=== PATIENT | female | born 1930 | race Caucasian/White ===

== ENCOUNTER 2017-10-02 17:39 | Inpatient (IN) | payer OTHER ==
[2017-10-02 17:48] VITALS: BMI 33.3
[2017-10-02 19:42] LABS: BASO % 0.6 % (0-2.0); EOS % 1.9 % (0-4.5); HEMATOCRIT 42.4 % (32.4-45.2); HEMOGLOBIN 14.1 GM/dL (10.7-15.3); LYMPH % 21.2 % (8-40); MCHC 33.3 g/dl (32.0-36.0); MEAN PLT VOLUME 8.7 fl (7.5-11.1); NEUT % 70.3 % (42.8-82.8); PLATELET COUNT 185 K/MM3 (134-434); RBC 4.42 M/mm3 (3.60-5.2); RDW 15.7 % (11.6-15.6); WHITE BLOOD COUNT 7.9 K/mm3 (4.0-10.0)
--- NOTE | 2017-10-02 19:43 | PDOC ---
History of Present Illness - General Chief Complaint: Revisit,Radiology Variance Stated Complaint: PCP SENT Time Seen by Provider: 10/02/17 19:38 History Source: Patient Exam Limitations: No Limitations - History of Present Illness Initial Comments: CHIEF COMPLAINT: 87 y/o afebrile female with PMH ACS with stents, Afib on Coumadin, HTN, HLD, parkinson's here for evaluation for a blood clot in her leg. HISTORY OF PRESENT ILLNESS: The patient states she's had a bruise that's worsening and left leg pain x 3 weeks and right leg pain x 2 days. Her PMD had a stroke 5 months ago so she doesn't have a primary. She decided to go to today who informed her she has a blood clot in her leg. She admits she takes her Coumadin every day and for the past few weeks her INR has been above 5. She denies f/c, n/v/d, CP, SOB, cough, hemoptysis, abd pain, back pain, numbness /tingling in LEs. Vital signs on arrival are notable for pulse ox of 95% on RA. PMD: Dr. 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 Cr Neurologist: Dr. Cardenas REVIEW OF SYSTEMS: GENERAL/CONSTITUTIONAL: No fever/chills. No weakness. No weight change. CARDIAC: No CP, hemoptysis, cough. LUNGS: No SOB GENITOURINARY: No dysuria, frequency, or change in urination. MUSCULOSKELETAL: +b/l LE pain and bruising. No neck or back pain. SKIN: +bruising to b/l LEs. NEUROLOGIC: No headache, vertigo, loss of consciousness, or loss of sensation. PHYSICAL EXAM: VITAL_SIGNS: within normal limits GENERAL_APPEARANCE: alert, cooperative, no obvious discomfort. MENTAL_STATUS: speech clear, oriented X 3, responds appropriately to questions. NEURO: motor intact and sensory intact in injured extremity. EXTREMITIES: good pulse in injured extremity. 16cm x 9cm hematoma to left distal lower extremity that is TTP. Scattered small hematomas to right LE. b/ l calf pain without erythema, warmth or streaking. Non pitting edema to b/l LEs. 2+ dorsalis pedis pulses b/l LEs. SKIN: warm, dry, good color. Past History - Past Medical History Allergies/Adverse Reactions: Allergies Allergy/AdvReac Type Severity Reaction Status Date / Time No Known Drug Allergies Allergy Verified 10/02/17 17:41 Home Medications: Ambulatory Orders Amlodipine Besylate [Norvasc -] 2.5 mg PO DAILY 06/26/12 Aspirin Coated [Ecotrin -] 81 mg PO DAILY 06/26/12 Warfarin Sodium [Coumadin] 1 mg PO HS tablet 10/23/13 Allopurinol 300 mg PO DAILY 10/02/17 Carbidopa/Levodopa [Carbidopa-Levo ER 50-200 Tab] 1 each PO TID 10/02/17 Nebivolol [Bystolic -] 10 mg PO HS 10/02/17 Ranolazine [Ranexa -] 500 mg PO BID 10/02/17 Rosuvastatin [Crestor -] 10 mg PO DAILY 10/02/17 Cardiac Disorders: Yes (pacemaker [employer] stents,a.f.) CVA: No COPD: No Dementia: No HTN: Yes Hypercholesterolemia: Yes Seizures: No Thyroid Disease: No - Surgical History Cardiac Surgery: Yes (stents 5yrs ago) - Suicide/Smoking/Psychosocial Hx Smoking History: Former smoker Have you smoked in the past 12 months: No If you are a former smoker, when did you quit?: yrs ago Information on smoking cessation initiated: No Hx Alcohol Use: (rare) Substance Use Type: Alcohol *Physical Exam - Vital Signs Last Vital Signs Temp Pulse Resp BP Pulse Ox 98 F 78 16 145/66 95 10/02/17 17:42 10/02/17 17:42 10/02/17 17:42 10/02/17 17:42 10/02/17 17:42 Heart Score/ECG Review - History History: Slightly suspicious - Electrocardiogram EKG: Non specific repolarization disturbance - Age Age: >/= 65 - Risk Factors Risk Factors Heart Score: Yes Hx Hypercholesterolemia, Yes Hx Hypertension, Yes Hx Obesity Based on the list above the patient has:: >/=3 risk factors or Hx atherosclerotic disease - ECG Intrepretation Comment:: Twelve-lead EKG was performed and reviewed by Dr. Pierre. There is atrial paced rhythm with prolonged AV conduction. The axis is normal. The intervals are normal. Non specific ST and T wave abnormality Impression: Abnormal twelve-lead EKG ED Treatment Course - LABORATORY CBC & Chemistry Diagram: 10/02/17 18:52 10/02/17 21:00 Medical Decision Making - Medical Decision Making A/P: 87 y/o afebrile female here for an evaluation of possible blood clot in her legs. Physical exam is not consistent with DVT and suspicious given her INR levels have been >5. Plan is as follows: 1. Labs 2. EKG 3. Doppler LEs 4. CXR INR = 3.3 Venous doppler b/l LEs IMPRESSION: Thrombus in proximal, mid and distal right femoral vein. Spoke with Dr. Marquez and he does not want her to have any extra anticoagulation. He wants to consult with the patient and her family tomorrow for possible IVC filter placement. Spoke with Dr. Chiu and will be admitted. Dr. Hale consulted Hematology consulted Informed the patient and her family of the results and plan. I attempted to answer all questions they had. *DC/Admit/Observation/Transfer Diagnosis at time of Disposition: DVT (deep venous thrombosis) - Discharge Dispostion Condition at time of disposition: Stable Admit: Yes - Referrals - Patient Instructions - Post Discharge Activity
[2017-10-02 20:03] LABS: INR 3.31 (0.82-1.09); PROTHROMBIN TIME (PATIENT) 37.4 SEC (9.7-13.0)
--- NOTE | 2017-10-02 20:05 | PDOC ---
*Physical Exam - Vital Signs Last Vital Signs Temp Pulse Resp BP Pulse Ox 98 F 78 16 145/66 95 10/02/17 17:42 10/02/17 17:42 10/02/17 17:42 10/02/17 17:42 10/02/17 17:42 ED Treatment Course - LABORATORY CBC & Chemistry Diagram: 10/03/17 07:12 10/03/17 07:12 - ADDITIONAL ORDERS Additional order review: 10/02/17 18:52 RBC 4.42 MCV 96.0 MCHC 33.3 RDW 15.7 H MPV 8.7 Neutrophils % 70.3 Lymphocytes % 21.2 D Monocytes % 6.0 Eosinophils % 1.9 Basophils % 0.6 Medical Decision Making - Medical Decision Making 10/02/17 20:05 agree with care from MANUEL Mendez *DC/Admit/Observation/Transfer Diagnosis at time of Disposition: DVT (deep venous thrombosis) - Discharge Dispostion Condition at time of disposition: Stable - Referrals - Patient Instructions - Post Discharge Activity
[2017-10-02 21:25] LABS: URINE APPEARANCE SLCLOUDY; URINE BILIRUBIN NEGATIVE (<2.0 mg/dL); URINE COLOR YELLOW; URINE GLUCOSE (UA) NEGATIVE (NEGATIVE); URINE KETONE TRACE (NEGATIVE); URINE NITRITE POSITIVE (NEGATIVE); URINE UROBILINOGEN NEGATIVE mg/dL (0.2-1.0)
[2017-10-02 21:37] LABS: URINE LEUK ESTERASE 1+ (NEGATIVE); URINE PROTEIN 1+ (NEGATIVE)
[2017-10-02 21:40] LABS: ALBUMIN 3.7 g/dl (3.4-5.0); ALK PHOS 95 U/L (45-117); ANION GAP 5 (8-16); BILIRUBIN,TOTAL 0.5 mg/dL (0.2-1.0); BLOOD UREA NITROGEN 29 mg/dL (7-18); CALCIUM 8.9 mg/dL (8.5-10.1); CHLORIDE 111 mmol/L (98-107); CO2 27 mmol/L (21-32); CREATININE 1.2 mg/dL (0.55-1.02); GLUCOSE,RANDOM 100 mg/dL (74-106); SGOT/AST 23 U/L (15-37); SGPT/ALT 10 U/L (12-78); SODIUM 143 mmol/L (136-145); TOT PROT 6.6 g/dl (6.4-8.2)
[2017-10-02 21:53] LABS: URINE BACTERIA RARE /hpf (NONE SEEN); URINE MUCUS RARE
--- NOTE | 2017-10-02 22:20 | PN ---
Teaching Attending Note Name of Resident: Hermes Null ATTENDING PHYSICIAN STATEMENT I saw and evaluated the patient. I reviewed the resident's note and discussed the case with the resident. I agree with the resident's findings and plan as documented. SUBJECTIVE: 87 to F with pmhx. of CAD with stents, A-Fib on Coumadin, Parkinson's who presents with left leg pain and right leg pain. She presented to urgent care who had done a US and told her she had a blood clot in the leg. States she is compliant with Coumadin. Notes her INR hs been > 5 over the course of several week. No chest pain, pressure, or shortness of breath. No hemoptysis, No numbness/tingling of LE. Of note, pt.s son and granddaughter has Protein C defeciency PMD: Dr. Boss-Retired OBJECTIVE: Physical: VS: Vital Signs Period Temp Pulse Resp BP Sys/Rodarte Pulse Ox Last 24 Hr 98 F 63-78 16-16 125-145/63-66 95-96 GEN: NAD, Resting in bed, AAoX HEENT: NCAT, PERRL, Throat without erythema or exudtaes CARD: RRR S1. S2 RESP: CTAB ABD: Bsx4, NTD to palpation EXT: RLE Edema>Left, 5X8 cm hematoma on L. mcarthur, Pulses intact bilateral LE. UE -C/C/E CBCD WBC 7.9 K/mm3 (4.0-10.0) 10/02/17 18:52 RBC 4.42 M/mm3 (3.60-5.2) 10/02/17 18:52 Hgb 14.1 GM/dL (10.7-15.3) D 10/02/17 18:52 Hct 42.4 % (32.4-45.2) 10/02/17 18:52 MCV 96.0 fl (80-96) 10/02/17 18:52 MCHC 33.3 g/dl (32.0-36.0) 10/02/17 18:52 RDW 15.7 % (11.6-15.6) H 10/02/17 18:52 Plt Count 185 K/MM3 (134-434) 10/02/17 18:52 MPV 8.7 fl (7.5-11.1) 10/02/17 18:52 CMP Sodium 143 mmol/L (136-145) 10/02/17 21:00 Potassium 4.0 mmol/L (3.5-5.1) 10/02/17 21:00 Chloride 111 mmol/L (98-107) H 10/02/17 21:00 Carbon Dioxide 27 mmol/L (21-32) 10/02/17 21:00 Anion Gap 5 (8-16) L 10/02/17 21:00 BUN 29 mg/dL (7-18) H 10/02/17 21:00 Creatinine 1.2 mg/dL (0.55-1.02) H 10/02/17 21:00 Creat Clearance w eGFR 42.50 (>60) 10/02/17 21:00 Random Glucose 100 mg/dL (74-106) 10/02/17 21:00 Calcium 8.9 mg/dL (8.5-10.1) 10/02/17 21:00 Total Bilirubin 0.5 mg/dL (0.2-1.0) 10/02/17 21:00 AST 23 U/L (15-37) 10/02/17 21:00 ALT 10 U/L (12-78) L 10/02/17 21:00 Alkaline Phosphatase 95 U/L (45-117) 10/02/17 21:00 Total Protein 6.6 g/dl (6.4-8.2) 10/02/17 21:00 Albumin 3.7 g/dl (3.4-5.0) 10/02/17 21:00 INR, PTT INR 3.31 (0.82-1.09) H D 10/02/17 18:52 Home Medications Medication Instructions Recorded Amlodipine Besylate [Norvasc -] 2.5 mg PO DAILY 06/26/12 Aspirin Coated [Ecotrin -] 81 mg PO DAILY 06/26/12 Warfarin Sodium [Coumadin] 1 mg PO HS tablet 10/23/13 Allopurinol 300 mg PO DAILY 10/02/17 Carbidopa/Levodopa [Carbidopa-Levo 1 each PO TID 10/02/17 ER 50-200 Tab] Nebivolol [Bystolic -] 10 mg PO HS 10/02/17 Ranolazine [Ranexa -] 500 mg PO BID 10/02/17 Rosuvastatin [Crestor -] 10 mg PO DAILY 10/02/17 EKG: Atrial Paced with prolonged AV conduction. Non-Specific ST-T abnormality CXR: PPM, No Acute Process ASSESSMENT AND PLAN: 87 to F with pmhx. of CAD with stents, A-Fib on Coumadin, Parkinson's who presents with left leg pain and right leg pain, found to have a DVT of the right leg 1.) DVT R. Leg - Theraputic on Coumadin - NPO - Coags - Vasc. Consult for IVC filter - Type & Screen 2.) Hx. of CAD w. Stents - Hold ASA - C/W Bysolic - Statin 3.) HLD - C/W Statin 4.) Parkinson's Dx - C/W Carbidopa-Levidopa Place in Med-Sx
--- NOTE | 2017-10-02 23:13 | HP ---
CHIEF COMPLAINT: PCP: Dr. Boss-Retired Cardio: Dr Cobos Neuro: Dr Cardenas HISTORY OF PRESENT ILLNESS: 87yo F with PMHx of CAD (s/p stents) and Afib on Coumadin who was sent to the ER from urgent care for RLE DVT. She has been on Coumadin since 2012, compliant , gets INR checks every week, has been supratherapeutic (>5) for the past five weeks. Minimal changes have been made to her coumadin dosing. Has not seen PMD for 5 months since PMD retired. Went to ER for an expanding hematoma on her L mcarthur, but on venous duplex was found to have DVT in RLE. Has been recently more immobile 2/2 worsening sciatica. Denies malignancy. Son and grandaughter have confirmed Protein C deficiency. She is unsure if she carries the gene, never been worked up. No prior hx of clots. No CP, no SOB. In the ER, the patient was hemodynamically stable, repeat duplex shows R femoral DVT. Dr Marquez was paged, wanted no additional AC, plan for filter. Recent Travel: Denies PAST MEDICAL HISTORY: CAD with stents, Afib on Coumadin, HTN, HLD, Parkinson's here for evaluation for a blood clot in her leg. PAST SURGICAL HISTORY: Stents in 2014, Pacemaker Social History: Smokin+ pack year smoking hx Alcohol: Denies Drugs: Denies Allergies: No Known Drug Allergies Allergy (Verified 10/02/17 17:41) HOME MEDICATIONS: Home Medications Medication Instructions Recorded Amlodipine Besylate [Norvasc -] 2.5 mg PO DAILY 06/26/12 Aspirin Coated [Ecotrin -] 81 mg PO DAILY 06/26/12 Warfarin Sodium [Coumadin] 1 mg PO HS tablet 10/23/13 Allopurinol 300 mg PO DAILY 10/02/17 Carbidopa/Levodopa [Carbidopa-Levo 1 each PO TID 10/02/17 ER 50-200 Tab] Nebivolol [Bystolic -] 10 mg PO HS 10/02/17 Ranolazine [Ranexa -] 500 mg PO BID 10/02/17 Rosuvastatin [Crestor -] 10 mg PO DAILY 10/02/17 REVIEW OF SYSTEMS CONSTITUTIONAL: Absent: fever, chills, diaphoresis, generalized weakness, malaise, loss of appetite, weight change HEENT: Absent: rhinorrhea, nasal congestion, throat pain, throat swelling, difficulty swallowing, mouth swelling, ear pain, eye pain, visual changes CARDIOVASCULAR: Absent: chest pain, syncope, palpitations, irregular heart rate , lightheadedness, peripheral edema RESPIRATORY: Absent: cough, shortness of breath, dyspnea with exertion, orthopnea, wheezing, stridor, hemoptysis GASTROINTESTINAL:Absent: abdominal pain, abdominal distension, nausea, vomiting , diarrhea, constipation, melena, hematochezia GENITOURINARY: Absent: dysuria, frequency, urgency, hesitancy, hematuria, flank pain, genital pain MUSCULOSKELETAL: Absent: myalgia, arthralgia, joint swelling, back pain, neck pain SKIN: Absent: rash, itching, pallor HEMATOLOGIC/IMMUNOLOGIC: Absent: easy bleeding, easy bruising, lymphadenopathy, frequent infections ENDOCRINE:Absent: unexplained weight gain, unexplained weight loss, heat intolerance, cold intolerance NEUROLOGIC: Absent: headache, focal weakness or paresthesias, dizziness, unsteady gait, seizure, mental status changes, bladder or bowel incontinence PSYCHIATRIC: Absent: anxiety, depression, suicidal or homicidal ideation, hallucinations. PHYSICAL EXAMINATION Vital Signs Period Temp Pulse Resp BP Sys/Rodarte Pulse Ox Last 24 Hr 98 F 63-78 16-16 125-145/63-66 95-96 GEN: AAOx3, NAD, Has resting oral movements from PD, smiling HEENT: PERRLA, EOmi, no JVD CV: S1, S2, RRR LUNG: CTABL ABD: Soft, NT, ND, normoactive BS MSK: No flank tenderness, 3x4cm Hematoma on L mcarthur w/ overlying discoloration, tender to palpation, non-pitting edema, scattered hematomas, DP and PT pulses 2 + bilaterally, 5/5 feet strength. NEURO: CN 2-12 intact, decreased sensation in RLE, normal in LLE. ASSESSMENT/PLAN: 87yo F with PMHx of CAD (s/p stents) and Afib on Coumadin who was sent to the ER from urgent care for R Femoral DVT. # DVT on Coumadin -- Has been supratherapeutic for 1 mo. ?Is the clot acute? F/u with PMD. Assuming clot is acute, Dr Marquez was consulted, plan for IVC filter, he requests no additional AC nael. Will get heme consult for family hx of protein C deficiency. # RLE Paresthesia -- Decreased sensation in RLE. Could be from hematoma compressing cutaneous nerves. No concern for compartmet syndrome. No hx of DM but will get A1C # Elevated Cr -- Unsure of baseline, decreased form prior, workup not needed, BMp in AM. # LLE hematoma --Likely from supratherapeutic INR, Warm compresses. # Asymptomatic Pyuria -- Hold off on abx since pt is asymptomatic. F/u Ucx # CAD s/p stents -- No active CP, EKG unchanged from before, paced rhythm. Hold ASA for procedure. Continue statin. Pt requests link trainer operator consult, plan to make him PMD. # HTN -- Well controlled. Continue Nebivolol and norvasc # Parkinsons -- Continue sinemet # FEN/PPx -- No IVF, NPO, Supratherapeutic INR # Dispo -- Admit to tele Case d/w Dr Lizama & Dr Aram Null MD - PGY1 Night Post Acute Care Nurse Practitioner Visit type - Emergency Visit Emergency Visit: Yes ED Registration Date: 10/02/17 Care time: The patient presented to the Emergency Department on the above date and was hospitalized for further evaluation of their emergent condition. - New Patient This patient is new to me today: Yes Date on this admission: 10/03/17 - Critical Care Critical Care patient: No Hospitalist Screening - Colonoscopy Questionnaire Colonoscopy Questionnaire: Colonoscopy Questionnaire - Patient: 50 - 75 years old and never had a screening colonoscopy: Unknown History of colon or rectal polyps, or CA: Unknown History of IBD, Crohn's disease or UC: Unknown History of abdominal radiation therapy as a child: Unknown - Relative: 1 with colon or rectal CA, or polyps at age 60 or younger: Unknown Colon or rectal CA diagnosed at age 45 or younger: Unknown Multiple relatives with colon or rectal CA: Unknown - Outcome: Screening Result: Negative Screen
[2017-10-03] MEDS: NEBIVOLOL 10 MG TABLET (FP) PO SCH ×2 (00:42→21:17)
[2017-10-03] MEDS: RANOLAZINE E.R. 500 MG TABLET (FP) PO SCH ×3 (00:42→21:17)
[2017-10-03] MEDS: ROSUVASTATIN CA 10 MG TABLET (FP) PO SCH ×2 (00:42→21:17)
[2017-10-03 07:46] LABS: HEMATOCRIT 36.8 % (32.4-45.2); HEMOGLOBIN 12.4 GM/dL (10.7-15.3); MCH 32.3 pg (25.7-33.7); MCHC 33.8 g/dl (32.0-36.0); MEAN CELL VOLUME 95.6 fl (80-96); PLATELET COUNT 173 K/MM3 (134-434); RBC 3.85 M/mm3 (3.60-5.2); RDW 15.7 % (11.6-15.6); WHITE BLOOD COUNT 6.4 K/mm3 (4.0-10.0)
[2017-10-03 08:30] LABS: CHLORIDE 110 mmol/L (98-107); POTASSIUM 4.2 mmol/L (3.5-5.1); SODIUM 146 mmol/L (136-145)
[2017-10-03] MEDS ORDERED: PT OWN MED DRAWER 7, Y5N ONE ×2 (08:36→14:00)
[2017-10-03 08:38] LABS: ANION GAP 10 (8-16); BLOOD UREA NITROGEN 26 mg/dL (7-18); CALCIUM 9.1 mg/dL (8.5-10.1); CO2 26 mmol/L (21-32); CREATININE 1.1 mg/dL (0.55-1.02); GLUCOSE,RANDOM 76 mg/dL (74-106); MAGNESIUM 2.1 mg/dL (1.8-2.4); PHOSPHOROUS 3.5 mg/dL (2.5-4.9)
[2017-10-03] MEDS: ALLOPURINOL 300 MG TABLET (FP) PO SCH (09:11)
[2017-10-03] MEDS: amLODIPine BESYLATE 2.5 MG TABLET (FP) PO SCH (09:11)
[2017-10-03 09:36] LABS: INR 3.06 (0.82-1.09); PROTHROMBIN TIME (PATIENT) 34.6 SEC (9.7-13.0)
--- NOTE | 2017-10-03 10:13 | CON.CARD ---
Consult Consult Specialty:: Cardiology Referred by:: Hospitalist Medicine Reason for Consultation:: RLE DVT with therapeutic INR - History of Present Illness Chief Complaint: RLE swelling History of Present Illness: 87 to F with pmhx. of CAD with stents, A-Fib on Coumadin, Parkinson's who presents with bilateral leg pain. She presented to urgent care who had done a US and told her she had a blood clot in the right femoral vein. States she is compliant with Coumadin. Outpatient notes show her INR 1.52 09/04/2017, 2.57 03/2018, 2.79 09/18/2017 3.35 09/25/2017 No chest pain, pressure, or shortness of breath, near or true syncope, palpitations, orthopnea, PND. No hemoptysis, No numbness/tingling of LE. Of note, pt.s son and granddaughter has Protein C deficiency, superficial bruising seen on LLE. PMD: Dr. Ayon-Retired - History Source History Provided By: Patient Limitations to Obtaining History: No Limitations - Alcohol/Substance Use Hx Alcohol Use: (rare) - Smoking History Smoking history: Former smoker Have you smoked in the past 12 months: No If you are a former smoker, when did you quit?: yrs ago Home Medications - Allergies Allergies/Adverse Reactions: Allergies Allergy/AdvReac Type Severity Reaction Status Date / Time No Known Drug Allergies Allergy Verified 10/02/17 17:41 - Home Medications Home Medications: Ambulatory Orders Amlodipine Besylate [Norvasc -] 2.5 mg PO DAILY 06/26/12 Aspirin Coated [Ecotrin -] 81 mg PO DAILY 06/26/12 Warfarin Sodium [Coumadin] 1 mg PO HS tablet 10/23/13 Allopurinol 300 mg PO DAILY 10/02/17 Carbidopa/Levodopa [Carbidopa-Levo ER 50-200 Tab] 1 each PO TID 10/02/17 Nebivolol [Bystolic -] 10 mg PO HS 10/02/17 Ranolazine [Ranexa -] 500 mg PO BID 10/02/17 Rosuvastatin [Crestor -] 10 mg PO DAILY 10/02/17 Review of Systems - Review of Systems Cardiovascular: reports: Edema Vital Signs: Vital Signs Temperature 98.3 F 10/03/17 07:42 Pulse Rate 63 10/03/17 07:42 Respiratory Rate 19 05/02/18 07:43 Blood Pressure 117/54 10/03/17 07:42 O2 Sat by Pulse Oximetry (%) 96 10/03/17 07:43 Constitutional: Yes: No Distress, Calm Neck: Yes: Supple Respiratory: Yes: Regular, Diminished Gastrointestinal: Yes: Normal Bowel Sounds, Soft, Abdomen, Obese Cardiovascular: Yes: Pulse Irregular JVD: No Carotid Bruit: No Heart Sounds: Yes: S1, S2 Murmur: Yes: Systolic Murmur, Grade 1 Edema: Yes Edema: LLE: 1+, RLE: 1+ - Other Data Labs, Other Data: CBC, BMP 10/03/17 07:12 10/03/17 07:12 INR, PTT INR 3.06 (0.82-1.09) H 10/03/17 06:00 EKG: Atrial Paced with prolonged AV conduction. Non-Specific ST-T abnormality Ejection Fraction %: LVEF > or = 40 % Imaging - Results Chest X-ray: Report Reviewed (NAD) Ultrasound: Report Reviewed (RLE DVT) Problem List - Problems (1) Paroxysmal atrial fibrillation Code(s): I48.0 - PAROXYSMAL ATRIAL FIBRILLATION (2) Anticoagulant long-term use Code(s): Z79.01 - JAIL (CURRENT) USE OF ANTICOAGULANTS (3) Right femoral vein DVT Code(s): I82.411 - ACUTE EMBOLISM AND THROMBOSIS OF RIGHT FEMORAL VEIN Qualifiers: Chronicity: acute Qualified Code(s): I82.411 - Acute embolism and thrombosis of right femoral vein (4) Sick sinus syndrome Code(s): I49.5 - SICK SINUS SYNDROME (5) Pacemaker Code(s): Z95.0 - PRESENCE OF CARDIAC PACEMAKER (6) Diastolic dysfunction Code(s): I51.9 - HEART DISEASE, UNSPECIFIED (7) Chronic kidney disease Code(s): N18.9 - CHRONIC KIDNEY DISEASE, UNSPECIFIED (8) Coronary artery disease Code(s): I25.10 - ATHSCL HEART DISEASE OF [place] CORONARY ARTERY W/O ANG PCTRS Qualifiers: Coronary Disease-Associated Artery/Lesion type: [place] artery [place] vs. transplanted heart: [place] heart Associated angina: without angina Qualified Code(s): I25.10 - Atherosclerotic heart disease of [place] coronary artery without angina pectoris (9) S/P coronary artery stent placement Code(s): Z95.5 - PRESENCE OF CORONARY ANGIOPLASTY IMPLANT AND GRAFT (10) Hypertensive cardiomyopathy Code(s): I11.9 - HYPERTENSIVE HEART DISEASE WITHOUT HEART FAILURE; I43 - CARDIOMYOPATHY IN DISEASES CLASSIFIED ELSEWHERE Qualifiers: Heart failure presence: without heart failure Qualified Code(s): I11.9 - Hypertensive heart disease without heart failure; I43 - Cardiomyopathy in diseases classified elsewhere; I43 - Cardiomyopathy in diseases classified elsewhere; I43 - Cardiomyopathy in diseases classified elsewhere; I43 - Cardiomyopathy in diseases classified elsewhere (11) Hyperlipidemia Code(s): E78.5 - HYPERLIPIDEMIA, UNSPECIFIED Qualifiers: Hyperlipidemia type: pure hypercholesterolemia Qualified Code(s): E78.00 - Pure hypercholesterolemia, unspecified; E78.0 - Pure hypercholesterolemia Assessment/Plan 07/04/2017 Echo: cLVH, normal LVEF 55-60%, abnl LV compliance, mild TR RVSP 37 mmHg 1. Rt LE DVT despite therapeutic INR 2. Family h/o protein C deficiency 3. CAD s/p PCI (stent), angina pectoris 4. Paroxysmal afib on coumadin per INR 5. SSS s/p PPM ([employer]) 6. 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 HTN/HCVD 9. Hyperlipidemia 10. CKD 11. Parkinson's disease P:1. Coumadin per INR, 2-3 2. Vascular surgery consideration for IVC filter 3. Consider switch to NOAC 4. Agree with d/c ASA 5. Continue Bystolic 10 qd, Ranexa 500 bid, Norvasc 2.5 qd 6. Thank you for consultative opportunity
--- NOTE | 2017-10-03 10:31 | EKG ---
Test Reason : Blood Pressure : / mmHG Vent. Rate : 060 BPM Atrial Rate : 060 BPM P-R Int : 000 ms QRS Dur : 080 ms QT Int : 448 ms P-R-T Axes : 000 035 045 degrees QTc Int : 448 ms POOR DATA QUALITY, INTERPRETATION MAY BE ADVERSELY AFFECTED Atrial-paced rhythm with prolonged AV conduction NONSPECIFIC ST AND T WAVE ABNORMALITY ABNORMAL ECG WHEN COMPARED WITH ECG OF 26-JUN-2012 11:37, ELECTRONIC ATRIAL PACEMAKER HAS REPLACED ELECTRONIC VENTRICULAR PACEMAKER Confirmed by ANGEL RICO, JORDAN ([id number]) on 10/03/2017 10:31:24 AM Referred By: Confirmed By:JORDAN ORTIZ MD
--- NOTE | 2017-10-03 14:14 | PN ---
Teaching Attending Note Name of Resident: Kashif Gould ATTENDING PHYSICIAN STATEMENT I saw and evaluated the patient. I reviewed the resident's note and discussed the case with the resident. I agree with the resident's findings and plan as documented. SUBJECTIVE: Has pain in LLE with ambulation only. no pain at rest. no CP or SOB. no plapitations . reports sedentary life style lately. reports one level of INR 1.5 on 09/08 tingling in L foot toes . OBJECTIVE: NAd ,AAOx3, cooperative. Cv: RRR, no JVD Lungs: CTAB Abd: soft, NT, ND , NL BS Ext: RLE with edema , increased tenderness over the calf. DP 2+ . LLE with bruise on mcarthur with dependent extension to foot. DP 1+ . Nl sensation in feet . ASSESSMENT AND PLAN: 87 y/o lady with h/o HTN, CAD s/p stenting, A fib on coumadin and family h/o Protein C def who presented with L leg hematoma and RLE DVT from urgent care 1- R femoral vein DVT: unclear how old. although on coumadin, INR was subtherapeutic earlier this month . unclear if coumadin resistance/failure vs hypercoagulable state . - for IVC filter when INR < 2 - hold coumadin for now - protein C and S levels could be low on coumadin and acute clot but if NL it r /o prtoein c/s deficiency . will d/w heme - other hypercoagulable w/u ( anticardiolipin, Lupus anticoagulant, prothrombin gene mutation , anthithrombin Abs,,etc ) need authorization - to d/w Heme whether coumadin can be cont or switch to NOACs 2- LLE hematoma. in the setting of coumadin use. no signs of compartment syndrome - monitor - hold coumadin - hold asa 3- A fib: - coumad in on hold - cont bystolic 4- CAD: cont ranexa, norvasc , statin 5- ROWENA: likely prerenal. improved . will encourage oral hydration especially in setting of dehhydration and hypernatremia. if Na or cr cont to increase , will add IVF 6-Pyuria : asymptomatic . dispo : HLOC
--- NOTE | 2017-10-03 15:55 | CONSULT ---
Consult Consult Specialty:: Hematology - History of Present Illness History of Present Illness: 87 y/o female with h/o HTN, CAD s/p stents, A fib on coumadin and family h/o Protein C def who presented with L leg hematoma and RLE DVT. INR is >3 Hematology consulted for DVT on coumadin Pt seen and examined. Does not recall how she "bumped" her leg. - History Source History Provided By: Patient - Alcohol/Substance Use Hx Alcohol Use: (rare) - Smoking History Smoking history: Former smoker Have you smoked in the past 12 months: No If you are a former smoker, when did you quit?: yrs ago Home Medications - Allergies Allergies/Adverse Reactions: Allergies Allergy/AdvReac Type Severity Reaction Status Date / Time No Known Drug Allergies Allergy Verified 10/02/17 17:41 - Home Medications Home Medications: Ambulatory Orders Amlodipine Besylate [Norvasc -] 2.5 mg PO DAILY 06/26/12 Aspirin Coated [Ecotrin -] 81 mg PO DAILY 06/26/12 Warfarin Sodium [Coumadin] 1 mg PO HS tablet 10/23/13 Allopurinol 300 mg PO DAILY 10/02/17 Carbidopa/Levodopa [Carbidopa-Levo ER 50-200 Tab] 1 each PO TID 10/02/17 Nebivolol [Bystolic -] 10 mg PO HS 10/02/17 Ranolazine [Ranexa -] 500 mg PO BID 10/02/17 Rosuvastatin [Crestor -] 10 mg PO DAILY 10/02/17 Physical Exam Vital Signs: Vital Signs Temperature 97.2 F L 10/03/17 14:00 Pulse Rate 88 10/03/17 14:00 Respiratory Rate 19 10/03/17 07:43 Blood Pressure 124/66 10/03/17 14:00 O2 Sat by Pulse Oximetry (%) 96 10/03/17 07:43 Constitutional: Yes: Well Nourished, No Distress, Calm Eyes: Yes: Conjunctiva Clear HENT: Yes: Atraumatic, Normocephalic Neck: Yes: Supple, Trachea Midline Cardiovascular: Yes: Regular Rate and Rhythm Respiratory: Yes: Regular, CTA Bilaterally Gastrointestinal: Yes: Normal Bowel Sounds, Soft Extremities: Yes: Other (LLE: with +hematoma, slighlty tender.) Labs: CBC, BMP 10/03/17 07:12 10/03/17 07:12 Assessment/Plan New DVT while patient on coumadin can change to NOACs, once INR <2 Etiology ? being considered for IVC filter Hematoma monitoring ( of the LLE ) Its hard to assess Pr C def in her with a supposedly new clot and in a 87 year old d/w primary hospitalist
--- NOTE | 2017-10-03 17:02 | PN ---
Physical Exam: SUBJECTIVE: Patient seen and examined at bedside. No new complaints. The patient still endorses parasthesia in her left foot. OBJECTIVE: Vital Signs Period Temp Pulse Resp BP Sys/Rodarte Pulse Ox Last 24 Hr 97.2 F-98.3 F 61-88 16-19 113-145/48-76 95-96 GENERAL: The patient is awake, alert, and fully oriented, in no acute distress. HEAD: Normal with no signs of trauma. NECK: Trachea midline, full range of motion, supple. LUNGS: Breath sounds equal, clear to auscultation bilaterally, no wheezes, no crackles, no accessory muscle use. HEART: Regular rate and rhythm, S1, S2 without murmur, rub or gallop. ABDOMEN: Soft, nontender, nondistended, normoactive bowel sounds, no guarding, no rebound, no hepatosplenomegaly, no masses. EXTREMITIES: 2+ pulses, warm, well-perfused, no edema. There is an area on the distal 1/3 of the lower limb that is raised and bruised. The bruising extends from the lower limb into the foot. There is mild tenderness to palpation in the right lower limb. NEUROLOGICAL: Cranial nerves II through X grossly intact. Normal speech, gait not observed. PSYCH: Normal mood, normal affect. SKIN: Warm, dry, normal turgor, no rashes or lesions noted Laboratory Results - last 24 hr 10/02/17 10/02/17 10/02/17 18:52 18:52 18:52 WBC 7.9 RBC 4.42 Hgb 14.1 D Hct 42.4 MCV 96.0 MCH 32.0 MCHC 33.3 RDW 15.7 H Plt Count 185 MPV 8.7 Neutrophils % 70.3 Lymphocytes % 21.2 D Monocytes % 6.0 Eosinophils % 1.9 Basophils % 0.6 PT with INR 37.40 H INR 3.31 H D Sodium Cancelled Potassium Cancelled Chloride Cancelled Carbon Dioxide Cancelled Anion Gap Cancelled BUN Cancelled Creatinine Cancelled Creat Clearance w eGFR Cancelled Random Glucose Cancelled Hemoglobin A1c % Calcium Cancelled Phosphorus Magnesium Total Bilirubin Cancelled AST Cancelled ALT Cancelled Alkaline Phosphatase Cancelled Total Protein Cancelled Albumin Cancelled Urine Color Urine Appearance Urine pH Ur Specific [place] Urine Protein Urine Glucose (UA) Urine Ketones Urine Blood Urine Nitrite Urine Bilirubin Urine Urobilinogen Ur Leukocyte Esterase Urine WBC (Auto) Urine RBC (Auto) Urine Bacteria Urine Mucus Blood Type Antibody Screen 10/02/17 10/02/17 10/03/17 21:00 21:10 06:00 WBC RBC Hgb Hct MCV MCH MCHC RDW Plt Count MPV Neutrophils % Lymphocytes % Monocytes % Eosinophils % Basophils % PT with INR 34.60 H INR 3.06 H Sodium 143 Potassium 4.0 Chloride 111 H Carbon Dioxide 27 Anion Gap 5 L BUN 29 H Creatinine 1.2 H Creat Clearance w eGFR 42.50 Random Glucose 100 Hemoglobin A1c % Calcium 8.9 Phosphorus Magnesium Total Bilirubin 0.5 AST 23 ALT 10 L Alkaline Phosphatase 95 Total Protein 6.6 Albumin 3.7 Urine Color Yellow Urine Appearance Slcloudy Urine pH 5.0 Ur Specific [place] 1.020 Urine Protein 1+ H Urine Glucose (UA) Negative Urine Ketones Trace H Urine Blood 1+ H Urine Nitrite Positive Urine Bilirubin Negative Urine Urobilinogen Negative Ur Leukocyte Esterase 1+ H Urine WBC (Auto) 66 Urine RBC (Auto) 2 Urine Bacteria Rare Urine Mucus Rare Blood Type Antibody Screen 10/03/17 10/03/17 10/03/17 06:00 06:00 07:12 WBC 6.4 RBC 3.85 Hgb 12.4 D Hct 36.8 MCV 95.6 MCH 32.3 MCHC 33.8 RDW 15.7 H Plt Count 173 MPV 8.0 Neutrophils % Lymphocytes % Monocytes % Eosinophils % Basophils % PT with INR INR Sodium Potassium Chloride Carbon Dioxide Anion Gap BUN Creatinine Creat Clearance w eGFR Random Glucose Hemoglobin A1c % 6.1 H Calcium Phosphorus Magnesium Total Bilirubin AST ALT Alkaline Phosphatase Total Protein Albumin Urine Color Urine Appearance Urine pH Ur Specific [place] Urine Protein Urine Glucose (UA) Urine Ketones Urine Blood Urine Nitrite Urine Bilirubin Urine Urobilinogen Ur Leukocyte Esterase Urine WBC (Auto) Urine RBC (Auto) Urine Bacteria Urine Mucus Blood Type A POSITIVE Antibody Screen Negative 10/03/17 07:12 WBC RBC Hgb Hct MCV MCH MCHC RDW Plt Count MPV Neutrophils % Lymphocytes % Monocytes % Eosinophils % Basophils % PT with INR INR Sodium 146 H Potassium 4.2 Chloride 110 H Carbon Dioxide 26 Anion Gap 10 BUN 26 H Creatinine 1.1 H Creat Clearance w eGFR Random Glucose 76 Hemoglobin A1c % Calcium 9.1 Phosphorus 3.5 Magnesium 2.1 Total Bilirubin AST ALT Alkaline Phosphatase Total Protein Albumin Urine Color Urine Appearance Urine pH Ur Specific [place] Urine Protein Urine Glucose (UA) Urine Ketones Urine Blood Urine Nitrite Urine Bilirubin Urine Urobilinogen Ur Leukocyte Esterase Urine WBC (Auto) Urine RBC (Auto) Urine Bacteria Urine Mucus Blood Type Antibody Screen Active Medications Generic Name Dose Route Start Last Admin Trade Name Dylan PRN Reason Stop Dose Admin Allopurinol 300 mg 10/03/17 10:00 10/03/17 09:11 Zyloprim - PO 300 mg DAILY [facility] Administration Amlodipine Besylate 2.5 mg 10/03/17 10:00 10/03/17 09:11 Norvasc - PO 2.5 mg DAILY [facility] Administration Carbidopa/Levodopa 1 combo 10/03/17 00:30 10/03/17 14:43 Sinemet *Cr* 50/200 - PO 1 combo TID [place] Administration Nebivolol 10 mg 10/03/17 00:30 10/03/17 00:42 Bystolic - PO 10 mg HS [place] Administration Ranolazine 500 mg 10/03/17 00:30 10/03/17 09:11 Ranexa - PO 500 mg BID [facility] Administration Rosuvastatin Calcium 10 mg 10/03/17 00:30 10/03/17 00:42 Crestor - PO 10 mg HS [place] Administration ASSESSMENT/PLAN: The patient is an 87yo F with PMHx of CAD (s/p stents) and Afib on Coumadin who is being treated for a right Femoral DVT. #DVT on Coumadin -Pt follows at Dr. Hale's office for INR management. -Per patient, has been supratheraputic with INR's in the 3's -Dr. Moya aware, wants to hold Coumadin and wait for the INR to come down before inserting IVC filter. -will trend INR daily, and start heparin gtt once INR <2 -Hematology consult. # RLE Paresthesia -Patient continues to complain of numbness in her toes on the left side. No loss of motor function. -monitor for signs of compartment syndrome. # Elevated Cr -AM creatinine trending down -will monitor # LLE hematoma -likely from supratherapeutic INR -will treat with warm compresses -observe for worsening of the hematoma or signs of compartment syndrome. # CAD s/p stents -Continue statin. -Cardiology consulted. # HTN- controlled -Continue with Nebivolol and norvasc # Parkinsons -Continue sinemet # FEN -no fluids indicated -monitor lytes -sodium controlled diet # Dispo -Admit to tele Visit type - Emergency Visit Emergency Visit: Yes ED Registration Date: 10/02/17 Care time: The patient presented to the Emergency Department on the above date and was hospitalized for further evaluation of their emergent condition. - New Patient This patient is new to me today: Yes Date on this admission: 10/03/17 - Critical Care Critical Care patient: No
--- NOTE | 2017-10-03 18:27 | CONSULT ---
Consult - History of Present Illness History of Present Illness: 87 year old woman on chronic Coumadin therapy for atrial fibrillation was found to have a DVT of the right femoral vein when she was being evaluated for a left leg ecchymosis. She denies a prior history of DVT or PE. She has a history of Protein C deficiency. She has chronic swelling in both legs. No pain reported. - History Source History Provided By: Family Member - Past Medical History Cardio/Vascular: Yes: AFIB, HTN, Hyperlipdemia - Alcohol/Substance Use Hx Alcohol Use: (rare) - Smoking History Smoking history: Former smoker Have you smoked in the past 12 months: No If you are a former smoker, when did you quit?: yrs ago Home Medications - Allergies Allergies/Adverse Reactions: Allergies Allergy/AdvReac Type Severity Reaction Status Date / Time No Known Drug Allergies Allergy Verified 10/02/17 17:41 - Home Medications Home Medications: Ambulatory Orders Amlodipine Besylate [Norvasc -] 2.5 mg PO DAILY 06/26/12 Aspirin Coated [Ecotrin -] 81 mg PO DAILY 06/26/12 Warfarin Sodium [Coumadin] 1 mg PO HS tablet 10/23/13 Allopurinol 300 mg PO DAILY 10/02/17 Carbidopa/Levodopa [Carbidopa-Levo ER 50-200 Tab] 1 each PO TID 10/02/17 Nebivolol [Bystolic -] 10 mg PO HS 10/02/17 Ranolazine [Ranexa -] 500 mg PO BID 10/02/17 Rosuvastatin [Crestor -] 10 mg PO DAILY 10/02/17 Physical Exam Vital Signs: Vital Signs Temperature 97.2 F L 10/03/17 14:00 Pulse Rate 88 10/03/17 14:00 Respiratory Rate 19 10/03/17 07:43 Blood Pressure 124/66 10/03/17 14:00 O2 Sat by Pulse Oximetry (%) 96 10/03/17 07:43 Constitutional: Yes: No Distress Eyes: Yes: WNL HENT: Yes: WNL Neck: Yes: Supple Cardiovascular: Yes: Pulse Irregular Gastrointestinal: Yes: Soft Extremities: Yes: WNL Edema: Yes Edema: LLE: 1+, RLE: 2+ Integumentary: Yes: Bruising (Left anterior calf) Labs: CBC, BMP 10/03/17 07:12 10/03/17 07:12 Imaging - Results Ultrasound: Image Reviewed (Right femoral vein thrombosis) Assessment/Plan New DVT in patient on therapeutic Coumadin. The age of the clot is unknown but as this is a new finding it should be addressed with a hematology evaluation and placement of a caval filter. Currently INR is > 3 and will need to be lower before any invasive procedures.
[2017-10-04 08:03] LABS: HEMATOCRIT 41.2 % (32.4-45.2); HEMOGLOBIN 13.7 GM/dL (10.7-15.3); MCH 31.9 pg (25.7-33.7); MCHC 33.2 g/dl (32.0-36.0); MEAN CELL VOLUME 96.1 fl (80-96); MEAN PLT VOLUME 8.2 fl (7.5-11.1); PLATELET COUNT 191 K/MM3 (134-434); RBC 4.28 M/mm3 (3.60-5.2); RDW 15.8 % (11.6-15.6); WHITE BLOOD COUNT 6.8 K/mm3 (4.0-10.0)
[2017-10-04 08:19] LABS: ANION GAP 4 (8-16); BLOOD UREA NITROGEN 29 mg/dL (7-18); CALCIUM 8.9 mg/dL (8.5-10.1); CHLORIDE 113 mmol/L (98-107); CO2 30 mmol/L (21-32); CREATININE 1.4 mg/dL (0.55-1.02); GLUCOSE,RANDOM 84 mg/dL (74-106); POTASSIUM 4.1 mmol/L (3.5-5.1); SODIUM 147 mmol/L (136-145)
[2017-10-04 08:21] LABS: INR 2.3 (0.82-1.09)
--- NOTE | 2017-10-04 08:55 | PN ---
Teaching Attending Note Name of Resident: Kashif Gould ATTENDING PHYSICIAN STATEMENT I saw and evaluated the patient. I reviewed the resident's note and discussed the case with the resident. I agree with the resident's findings and plan as documented. SUBJECTIVE: no pain, no palpitations , no fever or chills . pain in LE is much better today. was able to ambulate to bathroom OBJECTIVE: NAd ,AAOx3 Cv: RRR, no JVD Lungs: CTAB Ext: RLE with edema , increased tenderness over the calf. DP 2+ . LLE with bruise on [place] . DP 2+ . Nl sensation in feet. ASSESSMENT AND PLAN: 87 y/o lady with h/o HTN, CAD s/p stenting, A fib on coumadin and family h/o Protein C def who presented with L leg hematoma and RLE DVT from urgent care 1- R femoral vein DVT: ? fluctuation in INR Vs hypercoagulability Vs coumadin resistance - IVC filter probably tomorrow . - cont to hold coumadin - hypercoagulability w/u as out pt due to family h/o protein C def - options of AC after IVC filter were d/w her. she was open to eliquis. risk of spontaneous or traumatic bleed and spinal bleed was d/w her. benefits were also d/w her. - will start eliquis after IVC filter when INR < 2 2- LLE hematoma. - monitor - hold coumadin - hold asa 3- ROWENA likely prerenal in the setting of dehydration - start IVF - monitor hypernatremia 4-A fib: - coumadin on hold . AC discussion as above - cont bystolic 5- CAD: cont ranexa, norvasc , statin 6-Pyuria : asymptomatic . dispo : [facility] PT eval.
[2017-10-04] MEDS: RANOLAZINE E.R. 500 MG TABLET (FP) PO SCH ×2 (09:42→21:01)
[2017-10-04] MEDS: amLODIPine BESYLATE 2.5 MG TABLET (FP) PO SCH (09:42)
[2017-10-04] MEDS: ALLOPURINOL 300 MG TABLET (FP) PO SCH (09:42)
--- NOTE | 2017-10-04 10:14 | PN ---
Progress Note (short form) - Note Progress Note: Exam unchanged. INR 2.3 today. IVC filter to be placed tomorrow afternoon. OK to start NOAC post-op
--- NOTE | 2017-10-04 11:54 | PN ---
Physical Exam: SUBJECTIVE: Patient seen and examined at bedside. No new complaints. No events overnight. She continues to c/o parasthesia OBJECTIVE: Vital Signs Period Temp Pulse Resp BP Sys/Rodarte Pulse Ox Last 24 Hr 97.2 F-99 F 60-88 18-20 112-145/54-69 94-95 GENERAL: The patient is awake, alert, and fully oriented, in no acute distress. HEAD: Normal with no signs of trauma. NECK: Trachea midline, full range of motion, supple. LUNGS: Breath sounds equal, clear to auscultation bilaterally, no wheezes, no crackles, no accessory muscle use. HEART: Regular rate and rhythm, S1, S2 without murmur, rub or gallop. ABDOMEN: Soft, nontender, nondistended, normoactive bowel sounds, no guarding, no rebound, no hepatosplenomegaly, no masses. EXTREMITIES: 2+ pulses, warm, well-perfused, no edema. The area of hematoma and bruising in the left lower limb is better today. Area is extractor tender raw stock to palpation and warm to the touch. No tenderness to palpation in the right lower limb. NEUROLOGICAL: Cranial nerves II through X grossly intact. Normal speech, gait not observed. PSYCH: Normal mood, normal affect. SKIN: Warm, dry, normal turgor, no rashes or lesions noted Laboratory Results - last 24 hr 10/04/17 10/04/17 10/04/17 07:40 07:40 07:40 WBC 6.8 RBC 4.28 Hgb 13.7 D Hct 41.2 MCV 96.1 H MCH 31.9 MCHC 33.2 RDW 15.8 H Plt Count 191 MPV 8.2 PT with INR 26.00 H INR 2.30 H Sodium 147 H Potassium 4.1 Chloride 113 H Carbon Dioxide 30 Anion Gap 4 L BUN 29 H Creatinine 1.4 H Random Glucose 84 Calcium 8.9 Active Medications Generic Name Dose Route Start Last Admin Trade Name Freq PRN Reason Stop Dose Admin Allopurinol 300 mg 10/03/17 10:00 10/04/17 09:42 Zyloprim - PO 300 mg DAILY [place] Administration Amlodipine Besylate 2.5 mg 10/03/17 10:00 10/04/17 09:42 Norvasc - PO 2.5 mg DAILY [place] Administration Carbidopa/Levodopa 1 combo 10/03/17 00:30 05/03/18 06:12 Sinemet *Cr* 50/200 - PO 1 combo TID [place] Administration Nebivolol 10 mg 10/03/17 00:30 10/03/17 21:17 Bystolic - PO 10 mg HS [place] Administration Ranolazine 500 mg 10/03/17 00:30 10/04/17 09:42 Ranexa - PO 500 mg BID [place] Administration Rosuvastatin Calcium 10 mg 10/03/17 00:30 10/03/17 21:17 Crestor - PO 10 mg HS [place] Administration ASSESSMENT/PLAN: The patient is an 87yo F with PMHx of CAD (s/p stents) and Afib on Coumadin who is being treated for a right Femoral DVT. #DVT on Coumadin -For IVC filter tomorrow afternoon per Dr. Moya -will begin heparin gtt if INR below 2 in am -discussed the risks and benefits of NOAC therapy with the patient and family. Both are agreeable. Will begin this therapy once filter placed. # RLE Paresthesia -No change in symptoms today. -monitor for signs of compartment syndrome. # Elevated Cr -AM creatinine trending up -will begin gentle hydration -will monitor # LLE hematoma -improved today -observe for worsening of the hematoma or signs of compartment syndrome. # CAD s/p stents -Continue statin. -Cardiology consulted. # HTN- controlled -Continue with Nebivolol and norvasc # Parkinsons -Continue sinemet # FEN -NS @ 75 -monitor lytes -sodium controlled diet # Dispo -Admit to tele Visit type - Emergency Visit Emergency Visit: Yes ED Registration Date: 10/02/17 Care time: The patient presented to the Emergency Department on the above date and was hospitalized for further evaluation of their emergent condition. - New Patient This patient is new to me today: No - Critical Care Critical Care patient: No
[2017-10-04] MEDS: SODIUM CHLORIDE 1,000 ML IV SCH (12:30)
[2017-10-04] MEDS ORDERED: PT OWN MED DRAWER 7, Y5N ONE (13:39)
--- NOTE | 2017-10-04 14:52 | PN ---
Progress Note, Physician Chief Complaint: Events noted Not in distress History of Present Illness: Patient was seen and examined. Awake and alert. Chart was reviewed Denies chest pain, SOB or palpitations - Current Medication List Current Medications: Active Medications Allopurinol (Zyloprim -) 300 mg PO DAILY [facility] Last Admin: 10/04/17 09:42 Dose: 300 mg Amlodipine Besylate (Norvasc -) 2.5 mg PO DAILY [facility] Last Admin: 10/04/17 09:42 Dose: 2.5 mg Carbidopa/Levodopa (Sinemet *Cr* 50/200 -) 1 combo PO TID [facility] Last Admin: 10/04/17 13:48 Dose: 1 combo Sodium Chloride (Normal Saline -) 1,000 mls @ 75 mls/hr IV ASDIR [facility] Last Admin: 10/04/17 12:30 Dose: 75 mls/hr Nebivolol (Bystolic -) 10 mg PO [facility] Last Admin: 10/03/17 21:17 Dose: 10 mg Ranolazine (Ranexa -) 500 mg PO BID [facility] Last Admin: 10/04/17 09:42 Dose: 500 mg Rosuvastatin Calcium (Crestor -) 10 mg PO [facility] Last Admin: 10/03/17 21:17 Dose: 10 mg - Objective Vital Signs: Vital Signs Temperature 98 F 10/04/17 10:00 Pulse Rate 60 10/04/17 10:00 Respiratory Rate 18 10/04/17 10:00 Blood Pressure 124/54 10/04/17 10:00 O2 Sat by Pulse Oximetry (%) 94 L 10/04/17 09:00 Eyes: Yes: PERRL HENT: Yes: Atraumatic Neck: Yes: Supple Cardiovascular: Yes: Regular Rate and Rhythm, Murmur (Soft SM), S1, S2 Respiratory: Yes: CTA Bilaterally Gastrointestinal: Yes: Normal Bowel Sounds, Soft, Abdomen, Obese. No: Tenderness Extremities: Yes: Erythema Edema: Yes Edema: LLE: Trace, RLE: 1+ Additional Findings/Remarks: Review of Systems: Constitutional: Denies fever, chills or weight loss Head and Neck: Denies Headaches, photophobia or blurring of vision Respiratory: Denies cough or sputum production Cardiovascular: As noted above Gastrointestinal: Denies nausea, vomiting, diarrhea or abdominal discomfort Genitourinary: Denies frequency or Urgency Musculoskeletal: No symptoms reported Endocrine: No symptoms reported Labs: CBC, BMP 10/04/17 07:40 10/04/17 07:40 INR, PTT INR 2.30 (0.82-1.09) H 10/04/17 07:40 Problem List - Problems (1) Chronic kidney disease Code(s): N18.9 - CHRONIC KIDNEY DISEASE, UNSPECIFIED (2) Coronary artery disease Code(s): I25.10 - ATHSCL HEART DISEASE OF [place] CORONARY ARTERY W/O ANG PCTRS Qualifiers: Coronary Disease-Associated Artery/Lesion type: [place] artery [place] vs. transplanted heart: [place] heart Associated angina: without angina Qualified Code(s): I25.10 - Atherosclerotic heart disease of [place] coronary artery without angina pectoris (3) Diastolic dysfunction Code(s): I51.9 - HEART DISEASE, UNSPECIFIED (4) Hyperlipidemia Code(s): E78.5 - HYPERLIPIDEMIA, UNSPECIFIED Qualifiers: Hyperlipidemia type: pure hypercholesterolemia Qualified Code(s): E78.00 - Pure hypercholesterolemia, unspecified; E78.0 - Pure hypercholesterolemia (5) Pacemaker Code(s): Z95.0 - PRESENCE OF CARDIAC PACEMAKER (6) Paroxysmal atrial fibrillation Code(s): I48.0 - PAROXYSMAL ATRIAL FIBRILLATION (7) Right femoral vein DVT Code(s): I82.411 - ACUTE EMBOLISM AND THROMBOSIS OF RIGHT FEMORAL VEIN Qualifiers: Chronicity: acute Qualified Code(s): I82.411 - Acute embolism and thrombosis of right femoral vein (8) S/P coronary artery stent placement Code(s): Z95.5 - PRESENCE OF CORONARY ANGIOPLASTY IMPLANT AND GRAFT (9) Sick sinus syndrome Code(s): I49.5 - SICK SINUS SYNDROME Assessment/Plan 1. Right lower extremity DVT despite therapeutic INR 2. Family history of protein C deficiency 3. CAD s/p PCI (stent), angina pectoris 4. Paroxysmal atrial fibrillation 5. SSS s/p PPM ([employer]) 6. 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 HTN/HCVD 9. Hyperlipidemia 10. CKD 11. Parkinson's disease PLAN: 1. Continue Coumadin per INR and keep btw 2-3, but NOAC may be considered 2. Vascular surgery consideration for IVC filter 3. Continue Bystolic 10 qd, Ranexa 500 bid and Norvasc 2.5 qd Further plans are to follow Calos Marrero MD
[2017-10-04] MEDS: ROSUVASTATIN CA 10 MG TABLET (FP) PO SCH (21:01)
[2017-10-04] MEDS: NEBIVOLOL 10 MG TABLET (FP) PO SCH (21:01)
[2017-10-05 07:02] LABS: INR 1.42 (0.82-1.09); PROTHROMBIN TIME (PATIENT) 16.1 SEC (9.7-13.0)
[2017-10-05 07:24] LABS: ANION GAP 6 (8-16); BLOOD UREA NITROGEN 28 mg/dL (7-18); CALCIUM 8.8 mg/dL (8.5-10.1); CHLORIDE 110 mmol/L (98-107); CO2 25 mmol/L (21-32); CREATININE 1.5 mg/dL (0.55-1.02); GLUCOSE,RANDOM 88 mg/dL (74-106); MAGNESIUM 2.1 mg/dL (1.8-2.4); PHOSPHOROUS 3.4 mg/dL (2.5-4.9); POTASSIUM 4.2 mmol/L (3.5-5.1); SODIUM 141 mmol/L (136-145)
[2017-10-05] MEDS ORDERED: HEPARIN NA (PORCINE) 5,000 UNITS/ML 1ML VIAL IVPUSH ONE (07:54)
[2017-10-05] MEDS ORDERED: HEPARIN NA (PORCINE) 5,000 UNITS/ML 1ML VIAL IVPUSH PRN ×4 (07:54→16:40)
[2017-10-05] MEDS ORDERED: HEPARIN INFUSION - 25,000 UNITS/500 ML INFUS.BAG IVPB SCH ×2 (08:00→16:40)
--- NOTE | 2017-10-05 08:13 | PN ---
Progress Note, Physician History of Present Illness: RLE pain improving. - Current Medication List Current Medications: Active Medications Allopurinol (Zyloprim -) 300 mg PO DAILY [facility] Last Admin: 10/04/17 09:42 Dose: 300 mg Amlodipine Besylate (Norvasc -) 2.5 mg PO DAILY [facility] Last Admin: 10/04/17 09:42 Dose: 2.5 mg Carbidopa/Levodopa (Sinemet *Cr* 50/200 -) 1 combo PO TID [facility] Last Admin: 10/05/17 05:51 Dose: 1 combo Heparin Sodium (Porcine) (Heparin -) 7,700 unit 80 unit/kg (7700 unit) IVPUSH ONCE ONE Stop: 10/05/17 07:55 Heparin Sodium (Porcine) (Heparin -) 3,900 unit 40 unit/kg (3900 unit) IVPUSH PRN PRN PRN Reason: For aPTT 35 to 45 seconds Heparin Sodium (Porcine) (Heparin -) 7,700 unit 80 unit/kg (7700 unit) IVPUSH PRN PRN PRN Reason: aPTT <35 seconds Sodium Chloride (Normal Saline -) 1,000 mls @ 75 mls/hr IV ASDIR [facility] Last Admin: 10/04/17 12:30 Dose: 75 mls/hr Heparin Sodium/Dextrose (Heparin Infusion -) 25,000 units in 500 mls @ 34.781 mls/hr IVPB TITR [facility]; 18 UNITS/KG/HR PRN Reason: Protocol Nebivolol (Bystolic -) 10 mg PO [facility] Last Admin: 10/04/17 21:01 Dose: 10 mg Ranolazine (Ranexa -) 500 mg PO BID [facility] Last Admin: 10/04/17 21:01 Dose: 500 mg Rosuvastatin Calcium (Crestor -) 10 mg PO HS [facility] Last Admin: 10/04/17 21:01 Dose: 10 mg - Objective Vital Signs: Vital Signs Temperature 98.2 F 10/05/17 05:26 Pulse Rate 68 10/05/17 05:26 Respiratory Rate 20 10/05/17 05:26 Blood Pressure 112/70 10/05/17 05:26 O2 Sat by Pulse Oximetry (%) 97 10/04/17 20:37 Constitutional: Yes: No Distress, Calm Neck: Yes: Supple Cardiovascular: Yes: Pulse Irregular Respiratory: Yes: Regular, CTA Bilaterally Gastrointestinal: Yes: Normal Bowel Sounds, Soft, Abdomen, Obese Edema: Yes Edema: LLE: Trace, RLE: Trace Labs: CBC, BMP 10/04/17 07:40 10/05/17 06:30 INR, PTT INR 1.42 (0.82-1.09) H D 10/05/17 06:30 - ....Imaging EKG: Report Reviewed (Tele: Afib occ paced) Problem List - Problems (1) Paroxysmal atrial fibrillation Code(s): I48.0 - PAROXYSMAL ATRIAL FIBRILLATION (2) Anticoagulant long-term use Code(s): Z79.01 - [facility]IV[facility] (CURRENT) USE OF ANTICOAGULANTS (3) Right femoral vein DVT Code(s): I82.411 - ACUTE EMBOLISM AND THROMBOSIS OF RIGHT FEMORAL VEIN Qualifiers: Chronicity: acute Qualified Code(s): I82.411 - Acute embolism and thrombosis of right femoral vein (4) Sick sinus syndrome Code(s): I49.5 - SICK SINUS SYNDROME (5) Pacemaker Code(s): Z95.0 - PRESENCE OF CARDIAC PACEMAKER (6) Diastolic dysfunction Code(s): I51.9 - HEART DISEASE, UNSPECIFIED (7) Chronic kidney disease Code(s): N18.9 - CHRONIC KIDNEY DISEASE, UNSPECIFIED (8) Coronary artery disease Code(s): I25.10 - ATHSCL HEART DISEASE OF [place] CORONARY ARTERY W/O ANG PCTRS Qualifiers: Coronary Disease-Associated Artery/Lesion type: [place] artery [place] vs. transplanted heart: [place] heart Associated angina: without angina Qualified Code(s): I25.10 - Atherosclerotic heart disease of [place] coronary artery without angina pectoris (9) S/P coronary artery stent placement Code(s): Z95.5 - PRESENCE OF CORONARY ANGIOPLASTY IMPLANT AND GRAFT (10) Hypertensive cardiomyopathy Code(s): I11.9 - HYPERTENSIVE HEART DISEASE WITHOUT HEART FAILURE; I43 - CARDIOMYOPATHY IN DISEASES CLASSIFIED ELSEWHERE Qualifiers: Heart failure presence: without heart failure Qualified Code(s): I11.9 - Hypertensive heart disease without heart failure; I43 - Cardiomyopathy in diseases classified elsewhere; I43 - Cardiomyopathy in diseases classified elsewhere; I43 - Cardiomyopathy in diseases classified elsewhere; I43 - Cardiomyopathy in diseases classified elsewhere (11) Hyperlipidemia Code(s): E78.5 - HYPERLIPIDEMIA, UNSPECIFIED Qualifiers: Hyperlipidemia type: pure hypercholesterolemia Qualified Code(s): E78.00 - Pure hypercholesterolemia, unspecified; E78.0 - Pure hypercholesterolemia Assessment/Plan 1. Right lower extremity DVT despite therapeutic INR 2. Family history of protein C deficiency 3. CAD s/p PCI (stent), angina pectoris 4. Paroxysmal atrial fibrillation 5. SSS s/p PPM (Medtronic) 6. 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 HTN/HCVD 9. Hyperlipidemia 10. CKD 11. Parkinson's disease PLAN: 1. Start NOAC post procedure 2. Plan for IVC filter today 3. Continue Bystolic 10 qd, Ranexa 500 bid, Crestor 10 qhs and Norvasc 2.5 qd
[2017-10-05] MEDS: amLODIPine BESYLATE 2.5 MG TABLET (FP) PO SCH ×2 (08:32→11:11)
[2017-10-05] MEDS: RANOLAZINE E.R. 500 MG TABLET (FP) PO SCH ×3 (08:33→21:22)
[2017-10-05] MEDS: ALLOPURINOL 300 MG TABLET (FP) PO SCH (10:03)
[2017-10-05] MEDS: SODIUM CHLORIDE 1,000 ML IV SCH (13:50)
--- NOTE | 2017-10-05 13:52 | PN ---
Progress Note (short form) - Note Progress Note: pt seen and examined. awaiting IVC procedure. Pain in the LE improving and the hematoma better too Constitutional: Yes: Well Nourished, No Distress, Calm Eyes: Yes: Conjunctiva Clear HENT: Yes: Atraumatic, Normocephalic Neck: Yes: Supple, Trachea Midline Cardiovascular: Yes: Regular Rate and Rhythm Respiratory: Yes: Regular, CTA Bilaterally Gastrointestinal: Yes: Normal Bowel Sounds, Soft Extremities: Yes: Other (LLE: with +hematoma, slighlty tender.) Last Vital Signs Temp Pulse Resp BP Pulse Ox 98 F 62 18 128/62 94 L 10/05/17 10:00 10/05/17 10:00 10/05/17 10:00 10/05/17 10:00 10/05/17 09:00 CBC, BMP 10/04/17 07:40 10/05/17 06:30 Current Medications Generic Name Dose Route Start Last Admin Trade Name Freq PRN Reason Stop Dose Admin Allopurinol 300 mg 10/03/17 10:00 10/05/17 10:03 Zyloprim - PO Not Given DAILY [facility] Amlodipine Besylate 2.5 mg 10/03/17 10:00 10/05/17 11:11 Norvasc - PO Not Given DAILY [facility] Carbidopa/Levodopa 1 combo 10/03/17 00:30 10/05/17 13:36 Sinemet *Cr* 50/200 - PO Not Given TID [facility] Heparin Sodium (Porcine) 3,900 unit 10/05/17 07:54 Heparin - 40 unit/kg (3900 unit) IVPUSH PRN PRN For aPTT 35 to 45 seconds Heparin Sodium (Porcine) 7,700 unit 10/05/17 07:54 Heparin - 80 unit/kg (7700 unit) IVPUSH PRN PRN aPTT <35 seconds Sodium Chloride 1,000 mls @ 75 mls/hr 10/04/17 12:00 10/05/17 13:50 Normal Saline - IV 75 mls/hr [facility] Administration Heparin Sodium/Dextrose 25,000 units in 500 mls @ 34.781 mls/hr 10/05/17 08: 00 10/05/17 08:56 Heparin Infusion - IVPB Not Given T[facility]R [facility] Protocol 18 UNITS/KG/HR Nebivolol 10 mg 10/03/17 00:30 05/03/18 21:01 Bystolic - PO 10 mg HS [facility] Administration Ranolazine 500 mg 10/03/17 00:30 10/05/17 11:11 Ranexa - PO Not Given BID [facility] Rosuvastatin Calcium 10 mg 10/03/17 00:30 10/04/17 21:01 Crestor - PO 10 mg HS [facility] Administration DVT: start NOACs post procedure ( once adequate hemostasis achieved ) LLE hematoma getting better
[2017-10-05] MEDS ORDERED: PROMETHAZINE HCL 25 MG/1 ML VIAL IVPB PRN ×2 (14:46→16:40)
[2017-10-05] MEDS ORDERED: ONDANSETRON 4 MG/2 ML VIAL IVPUSH PRN ×2 (14:46→16:40)
[2017-10-05] MEDS ORDERED: HEPARIN NA (PORCINE) 5,000 UNITS/ML 1ML VIAL ONE (15:00)
[2017-10-05] MEDS ORDERED: LIDOCAINE HCL 1%, 10 MG/ML (20ML VIAL) ONE (15:00)
[2017-10-05] MEDS ORDERED: LACTATED RINGERS SOLUTION 1,000 ML IV SCH ×2 (15:00→16:40)
--- NOTE | 2017-10-05 15:31 | PN ---
Physical Exam: SUBJECTIVE: Patient seen and examined at bedside. No new complaints. No events on tele. OBJECTIVE: Vital Signs Period Temp Pulse Resp BP Sys/Rodarte Pulse Ox Last 24 Hr 97.8 F-98.8 F 62-68 18-20 112-129/50-75 94-97 GENERAL: The patient is awake, alert, and fully oriented, in no acute distress. HEAD: Normal with no signs of trauma. NECK: Trachea midline, full range of motion, supple. LUNGS: Breath sounds equal, clear to auscultation bilaterally, no wheezes, no crackles, no accessory muscle use. HEART: Regular rate and rhythm, S1, S2 without murmur, rub or gallop. ABDOMEN: Soft, nontender, nondistended, normoactive bowel sounds, no guarding, no rebound, no hepatosplenomegaly, no masses. EXTREMITIES: 2+ pulses, warm, well-perfused, no edema. The area of hematoma and bruising in the left lower limb continues to improve. Area is muffler tender to palpation and warm to the touch. No tenderness to palpation in the right lower limb. NEUROLOGICAL: Cranial nerves II through X grossly intact. Normal speech, gait not observed. PSYCH: Normal mood, normal affect. SKIN: Warm, dry, normal turgor, no rashes or lesions noted Laboratory Results - last 24 hr 10/05/17 10/05/17 06:30 06:30 PT with INR 16.10 H INR 1.42 H D Sodium 141 Potassium 4.2 Chloride 110 H Carbon Dioxide 25 Anion Gap 6 L BUN 28 H Creatinine 1.5 H Random Glucose 88 Calcium 8.8 Phosphorus 3.4 Magnesium 2.1 Active Medications Generic Name Dose Route Start Last Admin Trade Name Freq PRN Reason Stop Dose Admin Allopurinol 300 mg 10/03/17 10:00 10/05/17 10:03 Zyloprim - PO Not Given DAILY [facility] Amlodipine Besylate 2.5 mg 10/03/17 10:00 10/05/17 11:11 Norvasc - PO Not Given DAILY [facility] Carbidopa/Levodopa 1 combo 10/03/17 00:30 10/05/17 13:36 Sinemet *Cr* 50/200 - PO Not Given TID [facility] Fentanyl 50 mcg 10/05/17 14:46 Sublimaze Injection - IVPUSH [id number] PRN PAIN-PACU ORDER X 4 DOSES ONLY Heparin Sodium (Porcine) 3,900 unit 10/05/17 07:54 Heparin - 40 unit/kg (3900 unit) IVPUSH PRN PRN For aPTT 35 to 45 seconds Heparin Sodium (Porcine) 7,700 unit 10/05/17 07:54 Heparin - 80 unit/kg (7700 unit) IVPUSH PRN PRN aPTT <35 seconds Sodium Chloride 1,000 mls @ 75 mls/hr 10/04/17 12:00 10/05/17 13:50 Normal Saline - IV 75 mls/hr [facility] Administration Heparin Sodium/Dextrose 25,000 units in 500 mls @ 34.781 mls/hr 10/05/17 08: 00 10/05/17 08:56 Heparin Infusion - IVPB Not Given [facility]R [facility] Protocol 18 UNITS/KG/HR Lactated Ringer's 1,000 mls @ 125 mls/hr 10/05/17 15:00 Lactated Ringers Solution IV [facility] Nebivolol 10 mg 10/03/17 00:30 10/04/17 21:01 Bystolic - PO 10 mg HS [facility] Administration Ondansetron HCl 4 mg 10/05/17 14:46 Zofran Injection IVPUSH Q6H PRN NAUSEA AND/OR VOMITING Promethazine HCl 12.5 mg 10/05/17 14:46 Phenergan Injection - IVPB Q6H PRN NAUSEA-FOR RESCUE AFTER 15 MIN Ranolazine 500 mg 10/03/17 00:30 10/05/17 11:11 Ranexa - PO Not Given BID [facility] Rosuvastatin Calcium 10 mg 10/03/17 00:30 10/04/17 21:01 Crestor - PO 10 mg HS [facility] Administration ASSESSMENT/PLAN: The patient is an 87yo F with PMHx of CAD (s/p stents) and Afib on Coumadin who is being treated for a right Femoral DVT. #DVT on Coumadin -s/p IVC filter placement 10/05 w/ Dr. Moya -Will place the patient on heparin Gtt as per Dr. Moya -will d/c drip in AM and start NOAC # RLE Paresthesia -No change in symptoms today. -monitor for signs of compartment syndrome. # Elevated Cr -AM creatinine trending up -will begin gentle hydration -will monitor # LLE hematoma -improved today -observe for worsening of the hematoma or signs of compartment syndrome. # CAD s/p stents -Continue statin. -Cardiology consulted. # HTN- controlled -Continue with Nebivolol and norvasc # Parkinsons -Continue sinemet # FEN -NS @ 75 -monitor lytes -sodium controlled diet # Dispo -Admit to tele Visit type - Emergency Visit Emergency Visit: Yes ED Registration Date: 10/02/17 Care time: The patient presented to the Emergency Department on the above date and was hospitalized for further evaluation of their emergent condition. - New Patient This patient is new to me today: No - Critical Care Critical Care patient: No
[2017-10-05] MEDS ORDERED: MIDAZOLAM HCL 2 MG/2 ML SINGLE DOSE VIAL ONE (15:48)
[2017-10-05] MEDS ORDERED: ceFAZolin SODIUM 1 GM VIAL ONE (15:49)
[2017-10-05] MEDS ORDERED: SODIUM CHLORIDE 0.9% P/F 10 ML VIAL IJ ONE (15:49)
[2017-10-05] MEDS ORDERED: ceFAZolin SODIUM 1 GM VIAL IVPB ONE (15:53)
--- NOTE | 2017-10-05 16:22 | OP ---
Operative Note - Note: Operative Date: 10/05/17 Pre-Operative Diagnosis: DVT on Coumadin Operation: Placement of IVC filter. Venogram Findings: Patent IVC Implants: Option Elite IVC filter Post-Operative Diagnosis: Same as Pre-op Surgeon: Low Marquez Anesthesiologist/HIGH PRESSURE CLEANER: Taurus Rosales Anesthesia: Fractional
[2017-10-05] MEDS ORDERED: SODIUM CHLORIDE 1,000 ML IV SCH ×2 (16:40→18:01)
[2017-10-05] MEDS: HEPARIN NA (PORCINE) 5,000 UNITS/ML 1ML VIAL IVPUSH ONE ×2 (18:02→18:21)
--- NOTE | 2017-10-05 18:16 | PN ---
Teaching Attending Note Name of Resident: Kashif Gould ATTENDING PHYSICIAN STATEMENT I saw and evaluated the patient. I reviewed the resident's note and discussed the case with the resident. I agree with the resident's findings and plan as documented. SUBJECTIVE: No fever or chills. has no abd pain. no SOB or CP. pain in LLE is much better . ambulated to bathroom OBJECTIVE: NAD, AAOx3 Cv: RRR, no JVD Lungs: CTAB Ext: RLE with improved edema and erythema. DP 2+ . LLE with bruise on mcarthur . DP 2+ . ASSESSMENT AND PLAN: 87 y/o lady with h/o HTN, CAD s/p stenting, A fib on coumadin and family h/o Protein C def who presented with L leg hematoma and RLE DVT from urgent care 1- R femoral vein DVT: ? fluctuation in INR Vs hypercoagulability Vs coumadin resistance - IVC filter placed today - start eliquis with close monitoring of renal function - hypercoagulability w/u as out pt due to family h/o protein C def - again eliquis was d/w her and her family and was agreed on 2- LLE hematoma. - monitor - hold asa 3- ROWENA likely prerenal in the setting of dehydration - increase IVF - if cont to increase will check renal US 4-A fib: - eliquis - cont bystolic 5- CAD: cont ranexa, norvasc , statin 6-asymptomatic bacteruria. No abx dispo : HLOC PT eval. dispo : depends on renal function and PT eval
[2017-10-05] MEDS: APIXABAN 5 MG TABLET PO SCH (21:21)
[2017-10-05] MEDS ORDERED: ROSUVASTATIN CA 10 MG TABLET (FP) PO SCH (22:00)
[2017-10-05] MEDS ORDERED: NEBIVOLOL 10 MG TABLET (FP) PO SCH (22:00)
[2017-10-06 07:38] LABS: ANION GAP 4 (8-16); BLOOD UREA NITROGEN 24 mg/dL (7-18); CALCIUM 7.8 mg/dL (8.5-10.1); CHLORIDE 112 mmol/L (98-107); CO2 26 mmol/L (21-32); CREATININE 1.3 mg/dL (0.55-1.02); GLUCOSE,RANDOM 76 mg/dL (74-106); MAGNESIUM 1.7 mg/dL (1.8-2.4); PHOSPHOROUS 3.3 mg/dL (2.5-4.9); POTASSIUM 3.9 mmol/L (3.5-5.1); SODIUM 142 mmol/L (136-145)
[2017-10-06 07:52] LABS: INR 1.79 (0.82-1.09); PROTHROMBIN TIME (PATIENT) 20.2 SEC (9.7-13.0)
[2017-10-06 07:56] LABS: ACTIVATED PTT 34.9 SECONDS (26.9-34.4)
[2017-10-06] MEDS ORDERED: APIXABAN 5 MG TABLET PO SCH ×2 (08:00)
[2017-10-06 08:06] LABS: HEMATOCRIT 35.2 % (32.4-45.2); MCH 32.4 pg (25.7-33.7); MCHC 33.9 g/dl (32.0-36.0); MEAN CELL VOLUME 95.6 fl (80-96); MEAN PLT VOLUME 8.2 fl (7.5-11.1); PLATELET COUNT 154 K/MM3 (134-434); RBC 3.68 M/mm3 (3.60-5.2); RDW 15.3 % (11.6-15.6); WHITE BLOOD COUNT 5.9 K/mm3 (4.0-10.0)
--- NOTE | 2017-10-06 08:14 | OP ---
DATE OF OPERATION: 10/05/2017 SURGEON: Low Cervantes MD PROCEDURE: Ultrasound-guide cannulation of the right femoral vein, venography of the inferior vena cava, placement of inferior vena caval filter. PREOPERATIVE DIAGNOSIS: Deep vein thrombosis while on Coumadin. POSTOPERATIVE DIAGNOSIS: Deep vein thrombosis while on Coumadin. ANESTHESIA: Fractional. ANESTHESIOLOGIST: Hunter Rosales MD OPERATIVE FINDINGS: The right common femoral vein was free of intraluminal thrombus. The vena cava was patent with normal caliber and no intraluminal thrombus. OPERATIVE PROCEDURE: Following routine patient identification with side and site verification, intravenous sedation was established. The right groin was prepped with ChloraPrep. Timeout was performed. Using real-time duplex imaging, the right common femoral vein was identified. It was compressible with normal flow. Lidocaine 1% was infiltrated in the skin and subcutaneous tissues overlying the vein. The vein was cannulated with a micropuncture needle under ultrasound guidance. A flexible wire was passed proximally into the iliac vein, and the needle was exchanged for a 5-[place] catheter. The wire was then exchanged for a [employer] wire which was advanced under fluoroscopy into the inferior vena cava. A 6-[place] long introducer sheath was then passed over the wire and positioned in the distal IVC. Venography was then performed with dilute contrast to visualize the inferior vena cava and renal veins. A wire and catheter were advanced through the sheath and used to cannulate each renal vein to confirm their location. This was marked on the x-ray screen. The Option ELITE filter was then passed through the introducer sheath and deployed with the tip at the level of the lowest renal vein. Completion venogram showed good flow through the filter which was in good position without angulation. The sheath was then removed, and pressure applied in the groin after bleeding ceased. A sterile dressing was applied, and the patient was taken to the recovery room in stable condition. LOW CERVANTES M.D. [id number]
[2017-10-06] MEDS ORDERED: MAGNESIUM OXIDE 400 MG TABLET (FP) PO ONE (08:27)
[2017-10-06] MEDS: RANOLAZINE E.R. 500 MG TABLET (FP) PO SCH (09:41)
[2017-10-06] MEDS: APIXABAN 5 MG TABLET PO SCH (09:41)
[2017-10-06] MEDS ORDERED: amLODIPine BESYLATE 2.5 MG TABLET (FP) PO SCH (10:00)
[2017-10-06] MEDS ORDERED: ALLOPURINOL 300 MG TABLET (FP) PO SCH (10:00)
--- NOTE | 2017-10-06 10:18 | PN ---
Progress Note, Physician Chief Complaint: Events noted Not in distress History of Present Illness: Patient was seen and examined. Awake and alert. Chart was reviewed Denies chest pain, SOB or palpitations. Post peripheral vascular intervention and IVC filter - Current Medication List Current Medications: Active Medications Allopurinol (Zyloprim -) 300 mg PO DAILY [facility] Last Admin: 10/06/17 09:42 Dose: 300 mg Amlodipine Besylate (Norvasc -) 2.5 mg PO DAILY [facility] Last Admin: 10/06/17 09:41 Dose: 2.5 mg Apixaban (Eliquis -) 10 mg PO BID [facility] Last Admin: 10/06/17 09:41 Dose: 10 mg Carbidopa/Levodopa (Sinemet *Cr* 50/200 -) 1 combo PO TID [facility] Last Admin: 10/06/17 06:02 Dose: 1 combo Sodium Chloride (Normal Saline -) 1,000 mls @ 100 mls/hr IV ASDIR [facility] Last Admin: 10/05/17 18:20 Dose: 100 mls/hr Nebivolol (Bystolic -) 10 mg PO [facility] Last Admin: 10/05/17 21:19 Dose: 10 mg Ondansetron HCl (Zofran Injection) 4 mg IVPUSH Q6H PRN PRN Reason: NAUSEA AND/OR VOMITING Promethazine HCl (Phenergan Injection -) 12.5 mg IVPB Q6H PRN PRN Reason: NAUSEA-FOR RESCUE AFTER 15 MIN Ranolazine (Ranexa -) 500 mg PO BID [facility] Last Admin: 10/06/17 09:41 Dose: 500 mg Rosuvastatin Calcium (Crestor -) 10 mg PO [facility] Last Admin: 10/05/17 21:21 Dose: 10 mg - Objective Vital Signs: Vital Signs Temperature 97.7 F 10/06/17 05:35 Pulse Rate 72 10/06/17 05:35 Respiratory Rate 20 10/06/17 05:35 Blood Pressure 116/64 10/06/17 05:35 O2 Sat by Pulse Oximetry (%) 94 L 10/05/17 20:19 Constitutional: Yes: Well Nourished HENT: Yes: Atraumatic Neck: Yes: Supple Cardiovascular: Yes: Regular Rate and Rhythm, Murmur (Soft SM), S1, S2 Respiratory: Yes: CTA Bilaterally Gastrointestinal: Yes: Normal Bowel Sounds, Soft. No: Tenderness Edema: Yes Edema: LLE: Trace, RLE: Trace Additional Findings/Remarks: Review of Systems: Constitutional: Denies fever, chills or weight loss Head and Neck: Denies Headaches, photophobia or blurring of vision Respiratory: Denies cough or sputum production Cardiovascular: As noted above Gastrointestinal: Denies nausea, vomiting, diarrhea or abdominal discomfort Genitourinary: Denies frequency or Urgency Musculoskeletal: No symptoms reported Endocrine: No symptoms reported Labs: CBC, BMP 10/06/17 05:00 10/06/17 05:00 INR, PTT INR 1.79 (0.82-1.09) H 10/06/17 05:00 Problem List - Problems (1) Chronic kidney disease Code(s): N18.9 - CHRONIC KIDNEY DISEASE, UNSPECIFIED (2) Coronary artery disease Code(s): I25.10 - ATHSCL HEART DISEASE OF [place] CORONARY ARTERY W/O ANG PCTRS Qualifiers: Coronary Disease-Associated Artery/Lesion type: [place] artery [place] vs. transplanted heart: [place] heart Associated angina: without angina Qualified Code(s): I25.10 - Atherosclerotic heart disease of [place] coronary artery without angina pectoris (3) Diastolic dysfunction Code(s): I51.9 - HEART DISEASE, UNSPECIFIED (4) Hyperlipidemia Code(s): E78.5 - HYPERLIPIDEMIA, UNSPECIFIED Qualifiers: Hyperlipidemia type: pure hypercholesterolemia Qualified Code(s): E78.00 - Pure hypercholesterolemia, unspecified; E78.0 - Pure hypercholesterolemia (5) Pacemaker Code(s): Z95.0 - PRESENCE OF CARDIAC PACEMAKER (6) Paroxysmal atrial fibrillation Code(s): I48.0 - PAROXYSMAL ATRIAL FIBRILLATION (7) Right femoral vein DVT Code(s): I82.411 - ACUTE EMBOLISM AND THROMBOSIS OF RIGHT FEMORAL VEIN Qualifiers: Chronicity: acute Qualified Code(s): I82.411 - Acute embolism and thrombosis of right femoral vein (8) S/P coronary artery stent placement Code(s): Z95.5 - PRESENCE OF CORONARY ANGIOPLASTY IMPLANT AND GRAFT (9) Sick sinus syndrome Code(s): I49.5 - SICK SINUS SYNDROME Assessment/Plan 1. Right lower extremity DVT despite therapeutic INR 2. Family history of protein C deficiency 3. CAD s/p PCI (stent), angina pectoris 4. Paroxysmal atrial fibrillation 5. SSS s/p PPM (Medtronic) 6. 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 HTN/HCVD 9. Hyperlipidemia 10. CKD 11. Parkinson's disease PLAN: 1. Currently started on Eliquis as tolerated 2. Vascular surgery input noted 3. Continue Bystolic 10 qd, Ranexa 500 bid, Norvasc 2.5 qd and Crestor 10 qd 4. Monitor renal function and electrolytes Further plans are to follow Calos Marrero MD
--- NOTE | 2017-10-06 11:47 | PN ---
Progress Note (short form) - Note Progress Note: POD 1 No C/o VSSGroin dressing dry Started on Eliquis Stop Heparin
--- NOTE | 2017-10-06 13:14 | PN ---
Teaching Attending Note Name of Resident: Kashif Gould ATTENDING PHYSICIAN STATEMENT I saw and evaluated the patient. I reviewed the resident's note and discussed the case with the resident. I agree with the resident's findings and plan as documented. SUBJECTIVE: No fever ro chills. no cp or SOB . legs feel better OBJECTIVE: NAD, AAOx3 Cv: RRR, no JVD Lungs: CTAB Ext: RLE with improved edema and erythema. DP 2+ . LLE with bruise on mcarthur. DP 2 + . ASSESSMENT AND PLAN: 87 y/o lady with h/o HTN, CAD s/p stenting, A fib on coumadin and family h/o Protein C def who presented with L leg hematoma and RLE DVT from urgent care 1- R femoral vein DVT: ? fluctuation in INR Vs hypercoagulability Vs coumadin resistance - S/p IVC filter. eval for removal in 3 months - cont eliquis . renal function is to be followed as out pt while on eliquis . this was explained to family and pt - hypercoagulability w/u as out pt due to family h/o protein C def - educated about signs of bleed 2- LLE hematoma. - monitor - hold asa after dc 3- ROWENA likely prerenal in the setting of dehydration as she has not been drinking in hospital to avoid urination . might have degree of CKD Cr improved today. will give a prescription for BMP in 1 week 4-A fib: - Eliquis - cont bystolic 5- CAD: cont ranexa, norvasc , statin ASa discontinued 6-Asymptomatic bacteruria. No abx She will establish care with a new PCP. f/u with card, vascular, and hematomology .
[2017-10-06 14:17] VITALS: BP 107/71; PULSE 63; TEMP 97.9
--- NOTE | 2017-10-06 16:03 | DS ---
Physical Exam: SUBJECTIVE: Patient seen and examined at bedside. No new complaints. No events overnight. OBJECTIVE: Vital Signs Period Temp Pulse Resp BP Sys/Rodarte Pulse Ox Last 24 Hr 97.6 F-98.7 F 60-76 16-20 96-132/50-82 94-98 PHYSICAL EXAM GENERAL: The patient is awake, alert, and fully oriented, in no acute distress. HEAD: Normal with no signs of trauma. NECK: Trachea midline, full range of motion, supple. LUNGS: Breath sounds equal, clear to auscultation bilaterally, no wheezes, no crackles, no accessory muscle use. HEART: Regular rate and rhythm, S1, S2 without murmur, rub or gallop. ABDOMEN: Soft, nontender, nondistended, normoactive bowel sounds, no guarding, no rebound, no hepatosplenomegaly, no masses. EXTREMITIES: 2+ pulses, warm, well-perfused, no edema. The area of hematoma and bruising in the left lower limb continues to improve. Area is external grinder tender to palpation and warm to the touch. No tenderness to palpation in the right lower limb. NEUROLOGICAL: Cranial nerves II through X grossly intact. Normal speech, gait not observed. PSYCH: Normal mood, normal affect. SKIN: Warm, dry, normal turgor, no rashes or lesions noted LABS Laboratory Results - last 24 hr 10/06/17 10/06/17 10/06/17 05:00 05:00 05:00 WBC 5.9 RBC 3.68 Hgb 12.0 D Hct 35.2 MCV 95.6 MCH 32.4 MCHC 33.9 RDW 15.3 Plt Count 154 MPV 8.2 PT with INR 20.20 H INR 1.79 H PTT (Actin FS) 34.9 H Sodium 142 Potassium 3.9 Chloride 112 H Carbon Dioxide 26 Anion Gap 4 L BUN 24 H Creatinine 1.3 H Random Glucose 76 Calcium 7.8 L Phosphorus 3.3 Magnesium 1.7 L HOSPITAL COURSE: Date of Admission:10/02/17 The patient is an 87yo F w/ PMH CAD (s/p stenting) and Afib on Coumadin who was sent to the ER from urgent care after for evaluation of RLE DVT. The patient had presented to urgent care for evaluation of a left leg hematoma and a DVT in the RLE was incidentally found. Patient endorsed a family history of protein C deficiency in her son and grandaughter, but had never been worked up. Patient also endorsed being more sedentary lately 2/2 to sciatica pain. Repeat US of both lower extremities in our ED confirmed the finding at the urgent care center. The patient was admitted for further management. Vascular surgery was consulted. Hematology was consulted. Cardiology was consulted. On admission, the patient's INR was found to be 3.31. The patient was treated with IV fluids. Anticoagulation (including the patient's home Coumadin) was held at the instruction of Dr. Marquez to allow the INR to normalize. On 09/05 , the patient's INR was found to be below 2, a heparin gtt was started and the patient went for IVC filter placement with Dr. Marquez. Hematology suggested switching the patient to NOAC therapy for better anticoagulation and also recommended further hypercoagulable workup as an outpatient. The patient and her family were both agreeable. After the IVC filter placement, the patient was started on Eliquis 10mg BID. The patient's admission was complicated by a mild ROWENA. Her creatinine on admission was 1.2 and trended up to a maximum of 1.5 on the day prior to discharge. The patient did admit that she had been drinking less water during her hospital stay in order to avoid going to the bathroom. After initiation of IV fluids, the patient's creatinine came down to 1.3 the next day. The patient was discharged with a prescription for Eliquis and a 30 day discount card for the medication. The patient was instructed to take 10mg of Eliquis twice per day for the first 7 days, then take 5mg of Eliquis twice per day. She was told to STOP taking her Coumadin AND her aspirin. She was counseled on the dangers of taking aspirin products and NSAIDs while on Eliquis. The patient was advised to get a BMP within one week to confirm that her creatinine continues to trend down. She was provided with a prescription for this blood work. She was also informed that she needed periodic creatinine screening while in Eliquis to monitor kidney function. The patient was instructed to follow up with Dr. Cobos within one week of discharge. She was also instructed to follow up with Dr. Marquez in a week to coordinate IVC filter removal or replacement at a later date. The patient was also advised to follow up with a manager of health within one week to begin outpatient hypercoagulable workup. The patient's PCP had recently retired. She was encouraged to find a new PCP and offered referrals. Patient stated that she had several referrals already who are closer to her home. Advised follow up with a new PCP ABELARDO. Date of Discharge: 10/06/17 Minutes to complete discharge: 90 Discharge Summary Reason For Visit: DEEP VEIN THROMBOSIS (DVT) Condition: Improved - Instructions Diet, Activity, Other Instructions: You were treated for a clot in your legs. You had an IVC filter placed by Dr. Marquez. Medication changes: please STOP taking your Coumadin. please STOP taking your Aspirin. START to take Eliquis in the following manner: -From 09/06 to 09/12, take 10mg of Eliquis twice per day (two 5mg tablets in the morning and two 5mg tablets in the evening, 12 hours apart ) for a total of 7 days -Starting 09/13, take 5mg of Eliquis twice per day (one tablet in the morning and one in the evening ) -A prescription has been sent to the pharmacy and a trial has been provided to you. -You will need to have your creatinine, a kidney test, checked in one week to make sure it continues to go down. You will also need to have this blood test regularly while on Eliquis. presciptionis given to you Follow-up in one week for post-hospital evaluation: 1. Dr. Cobos, cardiology to monitor and track your heart and the use of your Eliquis. 2. A primary care physician 3. Dr. Marquez to evaluate for removal of your IVC filter in 2-[address] Huang, a manager of health, to do some more blood tests and investigate the cause of your blood clot. Recommendations: Your hemoglobn A1c was 6.1%, please discuss repeat testing with your primary care doctor. ( pre-diabetes ) Use your walker when ambulating to minimize the risk of falls If you begin to experience chest pain, shortness of breath, fevers, chills, increased leg swelling or if any of your symptoms get worse, please call you doctor or return to the emergency department. watch for nay signs of bleed. avoid falls . Referrals: Marquis Cobos MD [Staff Physician] - 1 Week Julia Huang MD [Staff Physician] - 1 Week Low Marquez MD [Staff Physician] - 2 Weeks Disposition: HOME - Home Medications Comprehensive Discharge Medication List: Ambulatory Orders Amlodipine Besylate [Norvasc -] 2.5 mg PO DAILY 06/26/12 Allopurinol 300 mg PO DAILY 10/02/17 Carbidopa/Levodopa [Carbidopa-Levo ER 50-200 Tab] 1 each PO TID 10/02/17 Nebivolol [Bystolic -] 10 mg PO HS 10/02/17 Ranolazine [Ranexa -] 500 mg PO BID 10/02/17 Rosuvastatin [Crestor -] 10 mg PO DAILY 10/02/17 Apixaban [Eliquis -] 5 mg PO BID #30 tablet 10/06/17 Miscellaneous Drug Not In Syst [Outpatient Lab Test] 1 each ASDIR #1 misc 10/19 This patient is new to me today: No Emergency Visit: Yes ED Registration Date: 10/02/17 Care time: The patient presented to the Emergency Department on the above date and was hospitalized for further evaluation of their emergent condition. Critical Care patient: No - Discharge Referral Referred to [facility] No
== END 2017-10-06 14:48 | disposition home or self-care (01) | DRG 253 ==
LOC: JER 17:39 → JERBED 22:25 → J4W 10-03 00:05
PROVIDERS: ADMIT Internal Medicine; ATTEND Internal Medicine
PROC: 06H03DZ Insertion of Intraluminal Device into Inferior Vena Cava, Percutaneous Approach (ICD-10-PCS; principal; 2017-10-05 15:30)
DX: I82.411 Acute embolism and thrombosis of right femoral vein (principal); N17.9 Acute kidney failure, unspecified; D68.59 Other primary thrombophilia; I25.119 Atherosclerotic heart disease of native coronary artery with unspecified angina pectoris; Z98.61 Coronary angioplasty status; E78.5 Hyperlipidemia, unspecified; Z95.0 Presence of cardiac pacemaker; I48.0 Paroxysmal atrial fibrillation; I13.10 Hypertensive heart and chronic kidney disease without heart failure, with stage 1 through stage 4 chronic kidney disease, or unspecified chronic kidney disease; N18.9 Chronic kidney disease, unspecified; G20 Parkinson's disease; M79.81 Nontraumatic hematoma of soft tissue; R20.2 Paresthesia of skin
CPT/HCPCS: 36415; 71045-TC-FY; 76000-TC-FY; 80048; 80053; 81003; 81015; 83036; 83735; 84100; 85025; 85027; 85610; 85730; 86850; 86900; 86901; 87086; 87186; 93005; 93010; 93970-TC; 94760; 97116-GP; 97161-GP; 99284-25; J1644; J7030